=== PATIENT | male | born 1990 | race Caucasian/White ===

== ENCOUNTER 2020-06-10 08:50 | Outpatient (REF) | payer OTHER, SELFPAY | END 2020-06-10 08:51 | disposition home or self-care (01) | LOC: HO.WFDLDS 08:50 | PROVIDERS: Visit Provider Internal Medicine | DX: Z20.828 Contact with and (suspected) exposure to other viral communicable diseases (principal) | CPT/HCPCS: C9803; U0003 ==

== ENCOUNTER 2021-03-01 11:25 | Outpatient (REF) | payer OTHER, SELFPAY | END 2021-03-01 11:26 | disposition home or self-care (01) | LOC: HO.WFDLDS 11:25 | PROVIDERS: Visit Provider Internal Medicine | DX: Z20.822 Contact with and (suspected) exposure to COVID-19 (principal) | CPT/HCPCS: C9803; U0003; U0005 ==